=== PATIENT | male | born 1970 | race Caucasian/White ===

== ENCOUNTER 2022-02-25 02:56 | Emergency (ER) | payer SELFPAY ==
[2022-02-25 03:43] LABS: HEMOGLOBIN 14.9 gm/dl (14.0-17.5); RED BLOOD COUNT 4.57 M/UL (4.20-5.50); WHITE BLOOD COUNT 9.6 K/UL (4.5-11.0)
[2022-02-25 04:40] LABS: BUN/CREATININE RATIO 9 (0-10)
[2022-02-25] MEDS ORDERED: K-TAB ER20 MEQ PO (07:12)
== END 2022-02-25 07:20 | disposition home or self-care (01) ==
LOC: ER1 02:56
PROVIDERS: Student in an Organized Health Care Education/Training Program
DX: R07.9 Chest pain, unspecified (principal); E87.6 Hypokalemia; K21.9 Gastro-esophageal reflux disease without esophagitis; I10 Essential (primary) hypertension; J44.9 Chronic obstructive pulmonary disease, unspecified; F17.210 Nicotine dependence, cigarettes, uncomplicated; Z88.0 Allergy status to penicillin
CPT/HCPCS: 71045; 80053; 82550; 82553; 84484; 85025; 93005; 96374; 99285; J2405